=== PATIENT | female | born 1950 | race Caucasian/White ===

== ENCOUNTER 2019-12-09 14:04 | Outpatient (CLI) | payer MEDICARE, SELFPAY ==
[2019-12-09] MEDS: iohexol 300 mg/mL 50 mL Btl PO (15:09)
--- NOTE | 2019-12-09 15:09 | CT_ITS ---
WS: [id number] CT ABDOMEN PELVIS TECHNIQUE: Noncontrast CT of the abdomen and pelvis with coronal and sagittal reformatted images. CLINICAL INFORMATION: LEFT UPPER ABD PAIN COMPARISON: CT 08/09/2017 and 11/27/2016 DLP: 1120.[address] scans at [facility] use at least one of these dose optimization techniques: automat ed exposure control; mA and/or kV adjustment per patient size (includes targeted exams where dose is matched to clinical indication); or iterative reconstruction. FINDINGS: Prior hysterectomy. Noncontrast liver is normal. Normal gallbladder. Noncontrast spleen is normal. Sm all esophageal hiatal hernia with nodular soft tissue thickening in the distal esophagus. This appear s progressed since 2018. Recommend further evaluation with endoscopy.. Lung bases are well aerated. A drenal glands are normal. No hydronephrosis. Aortic calcification. Normal caliber abdominal aorta. No evidence of small or large bowel obstruction. Normal caliber abdominal aorta. Mild aortic calcific ation. No free fluid in the pelvis. No periaortic or retroperitoneal lymphadenopathy. No inguinal lym phadenopathy. Normal lumbar spine. Small fat-containing supraumbilical hernia. Small fat-containing umbilical hernia. CT/CT abdomen pelvis wo con [id number] IMPRESSION: 1. Small esophageal hiatal hernia with mild nodular tissue thickening in the d istal esophagus appears progressed since 2018. This can be further evaluated wi endoscopy. 2. Small supraumbilical fat-containing hernia is unchanged. 3. No abdominal or pelvic lymphadenopathy. 4. Normal caliber abdominal aorta. 5. No other significant interval changes.
== END 2019-12-09 14:05 | disposition home or self-care (01) ==
PROVIDERS: Family Provider Family Medicine; Visit Provider Family Medicine
DX: R10.12 Left upper quadrant pain (principal); K44.9 Diaphragmatic hernia without obstruction or gangrene
CPT/HCPCS: 74176

== ENCOUNTER 2021-02-01 08:08 | Outpatient (CLI) | payer MEDICARE, SELFPAY ==
--- NOTE | 2021-02-01 08:21 | USCV_ITS ---
Shaista Goodwin Age: 70 Gender: F : 1950 Exam Date: 02/01/2021 08:04 Ordering Phys: Jose Dutton MD Technologist: Maria E Rowley Exam Location: [facility] [place] Indication: INTERMITTENT CLAUDICATION RIGHT LEFT Brachial 153.00 mmHg Brachial 169.00 mmHg Pressure (mmHg) Waveform Pressure (mmHg) Waveform 159.00 High Thigh 166.00 159.00 WATCH MECHANIC 166.00 166.00 DPA 171.00 0.98 Ankle/Brachial Index 1.01 122.00 Pre-Exercise Toe Pressure 112.00 0.72 Pre-Exercise Toe/Brachial Index 0.66 FINDINGS Normal resting MAREK and TBI on the right side. Normal resting MAREK with a slightly diminished resting TBI on the left side CONCLUSIONS Features suggestive of mild peripheral artery disease on the left side, involving the distal vessels No significant arterial obstruction on the right side Dr Alok Evans MD [facility] (Electronically Signed) Final Date: 01 February 2021 09:59 S
== END 2021-02-01 08:09 | disposition home or self-care (01) ==
PROVIDERS: PCP Family Medicine; Visit Provider Family Medicine
DX: I73.9 Peripheral vascular disease, unspecified (principal)
CPT/HCPCS: 93922

== ENCOUNTER 2021-02-11 10:46 | Outpatient (CLI) | payer MEDICARE, SELFPAY ==
--- NOTE | 2021-02-11 | CT_ITS ---
WS: [id number] Exam: CT angio abd aorta runof [id number] Date/Time of Exam: 02/11/2021 11:27 AM Reason For Exam: CLAUDICATION DLP: 1309.[address] scans at [facility] use at least one of these dose optimization techniques: automat ed exposure control; mA and/or kV adjustment per patient size (includes targeted exams where dose is matched to clinical indication); or iterative reconstruction. CTA of the abdominal aorta and lower extremity arteries is performed in the axial plane with sagittal and coronal reformatted images. Intravenous contrast was administered. The abdominal aorta is normal in caliber. No aneurysm or dissection. The celiac, SMA and NEPTALI are merrill nt. The bilateral renal arteries are patent. The common iliac arteries are patent. The internal and e xternal iliac arteries are patent. The bilateral common femoral, superficial femoral and popliteal ar teries were also patent. The bilateral trifurcations at the knee are patent. There is diffuse narrowi ng of the left peroneal and posterior tibial artery on the left just above the level of the ankles. T he anterior and posterior tibial and peroneal arteries on the right are relatively patent to just abo ve the ankle. There was no indication of the artery aneurysm or dissection. Lower lung zones were clear. Prominent hiatal hernia. The liver, gallbladder, spleen, pancreas and re maining stomach appear normal. Unremarkable kidneys and adrenal glands. No free air or lymphadenopath y in the abdomen or pelvis. No significant large or small bowel abnormality demonstrated. Surgical an astomosis identified at the rectosigmoid junction. No mass or adenopathy in the pelvis. Intact urinar y bladder. No destructive bone lesions. CT/CT angio abd aorta runof [id number] IMPRESSION: 1. The abdominal aorta and all major branches were patent. No aneurysm or disse ction seen. 2. The major arteries in the pelvis were bilaterally patent. 3. The bilateral common femoral, superficial femoral and popliteal arteries wer e patent. The arterial trifurcations at the knees were patent. 4. Moderate small vessel segmental stenoses involving the left peroneal and pos terior tibial arteries above the level of the ankle noted. 5. The anterior and posterior tibial and peroneal arteries on the right appear to be relatively patent above the level of the ankle.
[2021-02-11 12:00] LABS: Blood Urea Nitrogen 10 mg/dL (8-23); Glomerular Filtration Rate 122.3 mL/min (90-130)
[2021-02-11] MEDS: iohexol 350 mg/mL 100 mL Btl IV (12:17)
== END 2021-02-11 10:47 | disposition home or self-care (01) ==
PROVIDERS: PCP Family Medicine; Visit Provider Family Medicine
DX: I73.9 Peripheral vascular disease, unspecified (principal); I70.8 Atherosclerosis of other arteries
CPT/HCPCS: 75635; 82565; 84520; Q9967

== ENCOUNTER → 2022-04-04 10:47 | Outpatient (BNVA) | payer MEDICARE, SELFPAY | PROVIDERS: PCP Family Medicine; Visit Provider Family Medicine | DX: E11.51 Type 2 diabetes mellitus with diabetic peripheral angiopathy without gangrene (principal); Z13.220 Encounter for screening for lipoid disorders; Z51.81 Encounter for therapeutic drug level monitoring; E55.9 Vitamin D deficiency, unspecified | CPT/HCPCS: 80053; 80061; 82306; 83036; 85025 ==

== ENCOUNTER 2022-04-13 13:06 | Outpatient (CLI) | payer MEDICARE, SELFPAY ==
--- NOTE | 2022-04-13 13:21 | MM_ITS ---
WS: [id number] Exam: [place] [id number] Date/Time of Exam: 04/13/2022 1:31 PM Reason For Exam: Screening mammogram VIEWS: MLO and CC views both breasts. 3D digital tomosynthesis is also included in this exam. Comparison made with prior exam of 12/09/2009, 12/27/2016,. Findings: There was no sign of mass, architectural distortion or suspicious calcification in either breast. Fa tty MM/[id number] Impression: BI-RADS: 1-Negative FOLLOW-UP: 1 Year Follow-up This mammogram was also analyzed by the Computer Aided Detection System R2 Imag e Robotic Welding Operator.
== END 2022-04-13 13:07 | disposition home or self-care (01) ==
LOC: RAD 13:08
PROVIDERS: PCP Family Medicine; Visit Provider Family Medicine
DX: Z12.31 Encounter for screening mammogram for malignant neoplasm of breast (principal)
CPT/HCPCS: 77067

== ENCOUNTER → 2023-03-28 13:09 | Outpatient (BNVA) | payer MEDICARE, SELFPAY | PROVIDERS: PCP Family Medicine; Visit Provider Family Medicine | DX: Z51.81 Encounter for therapeutic drug level monitoring (principal); E78.5 Hyperlipidemia, unspecified; E11.9 Type 2 diabetes mellitus without complications; R06.00 Dyspnea, unspecified; Z85.038 Personal history of other malignant neoplasm of large intestine; Z13.220 Encounter for screening for lipoid disorders | CPT/HCPCS: 80053; 80061; 83036; 85025 ==

== ENCOUNTER 2023-04-16 11:24 | Outpatient (CLI) | payer MEDICARE, SELFPAY ==
--- NOTE | 2023-04-16 12:03 | MM_ITS ---
WS: [id number] BILATERAL 3D TOMOSYNTHESIS DIGITAL SCREENING MAMMOGRAPHY WITH CAD CLINICAL INFORMATION: Screening mammogram HISTORY: Screening mammogram. No current complaints. COMPARISON: None. TECHNIQUE: Bilateral CC and MLO views. FINDINGS: Scattered fibroglandular densities bilaterally. No suspicious focal mass, asymmetry, calcifications, or architectural distortion. No evidence of malignancy. IMPRESSION: MM/[place] [id number] BI-RADS: 1-Negative FOLLOW UP: 1 Year Follow-up Recommend return to annual screening mammography.
== END 2023-04-16 11:25 | disposition home or self-care (01) ==
LOC: RAD 11:27
PROVIDERS: PCP Family Medicine; Visit Provider Family Medicine
DX: Z12.31 Encounter for screening mammogram for malignant neoplasm of breast (principal)
CPT/HCPCS: 77063; 77067

== ENCOUNTER 2023-04-30 13:23 | Outpatient (CLI) | payer MEDICARE, SELFPAY ==
--- NOTE | 2023-04-30 13:29 | CT_ITS ---
WS: [id number] LDCT LUNG CANCER SCREENING TECHNIQUE: Noncontrast CT of the chest with coronal and sagittal reformatted images. CLINICAL INFORMATION: HX OF TOBACCO USE COMPARISON: None. DLP: 76.60 mGy.cm DIvol: Mean CTDIvol: 1.70 (mGy) All CT scans at [facility] use at least one of these dose optimization techniques: automat ed exposure control; mA and/or kV adjustment per patient size (includes targeted exams where dose is matched to clinical indication); or iterative reconstruction. FINDINGS: Chronic emphysematous changes. Noncalcified nodule RIGHT upper lobe measuring 5 mm. 4 mm RI GHT middle lobe nodule. 5 mm nodule RIGHT lower lobe laterally. Tiny nodule RIGHT lower lobe measurin g 3 mm. Aortic calcification. Coronary calcification. No mediastinal or hilar lymphadenopathy. No axillary ly mphadenopathy. Adrenal glands are normal. Small esophageal hiatal hernia. No axillary lymphadenopathy . Adrenal glands are normal. IMPRESSION: CT/CT lung screening [id number] LUNG-RADS: 2-Benign Appearance or Behavior FOLLOW UP: 12 Month: Continue annual screening with LDCT
== END 2023-04-30 13:24 | disposition home or self-care (01) ==
LOC: RAD 13:24
PROVIDERS: PCP Family Medicine; Visit Provider Family Medicine
DX: Z12.2 Encounter for screening for malignant neoplasm of respiratory organs (principal); Z87.891 Personal history of nicotine dependence
CPT/HCPCS: 71271

== ENCOUNTER 2024-04-28 07:27 | Outpatient (CLI) | payer MEDICARE, SELFPAY ==
--- NOTE | 2024-04-28 07:38 | CT_ITS ---
WS: [id number] CT ABDOMEN AND PELVIS WITH CONTRAST HISTORY: EPIGASTRIC PAIN, history of colon cancer with resection. TECHNIQUE: Imaging performed of the abdomen and pelvis with IV contrast. Single phase imaging of the abdomen. Coronal and sagittal reformats are submitted. All CT scans at [facility] use at [address] one of these dose optimization techniques: automated exposure control; mA and/or kV adjustment per patient size (includes targeted exams where dose is matched to clinical indication); or iterative re construction. IV CONTRAST: Omnipaque 350; 100 mL IV. Oral contrast: Yes. DLP: 517.73 mGy.cm COMPARISON: 12/09/2019 Lower thorax: Lung bases are clear. Heart is normal size. Small hiatal hernia. Reidentified is a nodu lar, slightly lobulated mass measuring 1.9 x 2.0 cm projecting into the stomach at the GE junction. O n the coronal reformats this is slightly tubular in appearance and may be thickened gastric folds but neoplasm needs to be excluded. Liver/biliary system: Hepatic steatosis. No bile duct dilatation. Normal portal vein. Gallbladder: Normal. No gallstones or wall thickening. No pericholecystic fluid. Pancreas: Normal size pancreas and pancreatic duct. No adjacent inflammation. Spleen: Normal size spleen. No mass or infarct. Adrenal glands: Normal. Right kidney: Normal. Left kidney: Normal. Aorta: Mild atherosclerosis with no aneurysm. Mild narrowing of the celiac axis. Progression of narro wing since 02/11/2021. Plaque at the origin of the SMA. Lymphadenopathy: None. Free fluid: None. GI tract: No small bowel obstruction. There is asymmetric wall thickening involving the ascending col on. Wall measures up to 1.8 cm. Thickening is predominantly along the lateral cecal and ascending col on. Additional mild thickening of soft tissues at the rectum is slightly asymmetric to the LEFT. Rect um is a difficult area for CT to evaluate accurately. No significant diverticular disease. Abdominal wall: Ventral abdominal wall hernias containing fat. These are supraumbilical abdominal wal l hernias. Pelvis: No free fluid or adenopathy within the pelvis. Prior hysterectomy. Bones: Unremarkable. CT/CT abdomen pelvis w con* [id number] IMPRESSION: 1. Lobulated soft tissue mass at the GE junction extending into stomach measur es 1.9 x 2.0 cm. Recommend further evaluation to exclude malignancy. Upper endo scopy recommended. 2. No metastatic disease to the liver or the adrenal glands. 3. Atherosclerosis which has progressed since the prior examinations. Mild estela nosis involving the celiac axis and SMA. 4. Asymmetric wall thickening involving the cecum and ascending colon needs to be further evaluated to exclude malignancy. Colonoscopy recommended. 5. Additional asymmetric soft tissue along the lateral rectum. Colonoscopy rec ommended. 6. No ascites or adenopathy.
[2024-04-28 09:01] LABS: Blood Urea Nitrogen 10 mg/dL (8-23)
[2024-04-28] MEDS: iohexol 350 mg/mL 500 mL Btl (per mL) PO (09:19)
[2024-04-28] MEDS: iohexol 350 mg/mL 500 mL Btl (per mL) IV (09:19)
== END 2024-04-28 07:28 | disposition home or self-care (01) ==
LOC: RAD 07:28
PROVIDERS: Radiology Neuroradiology; PCP Family Medicine; Visit Provider Family Medicine
DX: R19.00 Intra-abdominal and pelvic swelling, mass and lump, unspecified site (principal); K56.690 Other partial intestinal obstruction; K42.9 Umbilical hernia without obstruction or gangrene
CPT/HCPCS: 74177; 82565; 84520

== ENCOUNTER 2024-07-22 10:02 | Emergency (ER) | payer MEDICARE, SELFPAY ==
[2024-07-22] VITALS (7 sets, daily range): BP systolic 160–191; BP diastolic 84–104; PULSE 87–108; RESP 16; TEMP 36.5; O2SAT 92–94; BMI 28.3
--- NOTE | 2024-07-22 10:41 | ED_ITS ---
HPI - Abdominal Pain 2 General: Chief Complaint: Abdominal Pain Stated Complaint: abd pain Time Seen by Provider: 07/22/24 10:41 History of Present Illness: 74-year-old female presents emergency co mplaining abdominal pain. She has muscle spasms cramping in her abdomen. She has used laxatives at time and able to get a normal bowel movement she has not had any vomiting. She had increasing abdominal discomfort took a bottle of mag citrate and had a large bowel movement but still has a cramping. She denies any medic easy melena hematemesis or coffee-ground emesis. Reviewing her chart in August 2023 she had a colonoscopy she had some polyps removed I do not have the pathology on that it was done at an outside facility. In April [address] done her liver was normal but she had changes from her previous colon resection and had questions of a right sided colon mass. She was followed with her primary care doctor regarding this referred back to the surgeon who had done the original colonoscopy. She has not had any biopsies or further evaluation of the May 04, 2024 CT. She has a known history of previous colon cancer for which she underwent colon resection Associated Symptoms: Reports constipation, GI cramping and nausea; Denies chills, dysuria and fever(s) Related Data Previous Rx's Medication Instructions Recorded metoprolol succinate 50 mg 50 mg PO DAILY #90 tabs 03/13/23 tablet,extended release 24 hr budesonide-formoterol HFA 80 2 puff inhalation BID #10.2 grams 03/28/23 mcg-4.5 mcg/actuation aerosol inhaler (Symbicort) desvenlafaxine 100 mg 100 mg PO DAILY #90 tabs 09/05/23 tablet,extended release 24 hr hydrocodone 5 mg-acetaminophen 325 1 tab PO Q6H PRN pain #25 tabs 07/22/24 mg tablet polyethylene glycol 3350 17 8.5 g PO BID #850 grams 07/22/24 gram/dose oral powder (Miralax) promethazine 25 mg tablet 25 mg PO Q6H PRN nausea and 07/22/24 vomiting #20 tabs Allergies Allergy/AdvReac Type Severity Reaction Status Date / Time Penicillins Allergy Severe ALGY-Hives Verified 07/22/24 10:19 Review of Systems 2 Const: Denies: fever(s) or chills Card: Denies: chest pain Resp: Denies: dyspnea GI: Reports: abdominal pain, nausea, constipation and GI cramping : Denies: dysuria, urinary frequency or urinary urgency Musc: Denies: neck pain or back pain Skin/Breast: Denies: rash PFSH ED 2 PFSH: Medical History Bladder polyps History of cystoscopy Prediabetes Surgical History H/O left wrist surgery History of partial colectomy Hx of hysterectomy Family History Brother Cancer of lung cancer Brother Homicide from homicide Sister Cancer of lung cancer Mother Cancer of lung cancer Father MVA (motor vehicle accident) when patient was 6 in an MVA Social History Smoking and tobacco/nicotine status: former use of tobacco/nicotine Alcohol intake: never Substance/Drug Use: former Date of last use: 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 - Wants to avoid future use Additional social history: Granddaughter is Ting Downey Physical Exam 2 Const: GENERAL APPEARANCE: cooperative ORIENTATION/CONSCIOUSNESS: Yes awake, Yes oriented to person, Yes oriented to place and Yes oriented to time HENMT: COMMON NORMALS: normocephalic, atraumatic and hearing grossly normal bilaterally HEAD & SCALP: normocephalic and atraumatic Resp: COMMON NORMALS: normal respiratory effort, No retractions, No use of accessory muscles and clear to auscultation bilaterally AUSCULTATION: clear to auscultation bilaterally Cardio: COMMON NORMALS: regular rate, regular rhythm and No murmurs present (Cardio) RATE: regular rate RHYTHM: regular rhythm GI: COMMON NORMALS: No hepatosplenomegaly present AUSCULTATION: Yes normoactive bowel sounds PALPATION: Yes Tenderness to palpation present (GI), No Guarding due to palpation present (GI) and Yes No hepatosplenomegaly present Extremity: COMMON NORMALS: normal to inspection, capillary refill normal, no clubbing, cyanosis or edema, no calf tenderness and no pedal edema Neuro: SENSORIUM/ORIENTATION: Yes oriented to person, Yes oriented to place and Yes oriented to time Skin: COMMON NORMALS: no rashes or lesions noted GENERAL SKIN EXAM: no rashes or lesions noted Course 2 Vital Signs: Vital signs: Vital Signs Temperature 97.7 F 07/22/24 10:13 Pulse Rate 108 H 07/22/24 15:18 Respiratory Rate 16 07/22/24 12:39 Blood Pressure 177/101 07/22/24 15:18 Pulse Oximetry 92 07/22/24 15:18 Oxygen Delivery Me thod Room Air 07/22/24 14:30 MDM - Abdominal Pain Medical Decision Making CT shows a large right sided colon mass its increased in size from April she now has metastasis to her liver which was not present in April. She also has significant lymphadenopathy. Reviewed the findings with the patient and she is now seeing Dr. Dutton I contacted Dr. Dutton he will see her at 2 PM she will see oncology later that afternoon. Given her history this most likely is colon cancer with metastasis. Patient was given pain medications as well as nausea medicines. Recommend she start on MiraLAX half a cap full twice a day. Discussed with the importance of not allowing constipation her stools need to be very loose. I did review her history and her CT findings with the on-call surgeon he did not feel that she is a candidate for emergent colon resection because of her extensive disease. Unless she has actual signs of obstruction he does not recommend proceeding with a surgical procedure at this time. Medical Records I reviewed the patient's medical records. Lab Data I reviewed the patient's lab results. 07/22/24 10:56 07/22/24 10:56 Labs/Radiology: Radiology Impressions Abdomen/Pelvis CT 07/22/24 12:11 IMPRESSION: 1. Hepatic metastatic disease. Metastatic lymphadenopathy within the abdomen or pelvis. 2. Colon mass, malignancy within the proximal right colon. 3. Moderate to severe hepatic steatosis. Nonspecific heterogeneous and irregular appearance of the liver. Recommend correlation with liver function tests. 4. Small sized hiatal hernia. 5. Possible mild constipation. 6. Small volume free fluid within right abdomen and pelvis. 7. Chronic findings. 8. Small volume free fluid within the right abdomen pelvis. Laboratory Results WBC 8.21 10^3/uL (3.29-11.43) 07/22/24 10:56 RBC 5.40 10^6/uL (3.85-5.65) 07/22/24 10:56 Hgb 15.40 g/dL (11.27-16.99) 07/22/24 10:56 Hct 48.1 % (36-47) H 07/22/24 10:56 MCV 89.1 fl (85-98) 07/22/24 10:56 MCH 28.5 pg (27-33) 07/22/24 10:56 MCHC 32.0 g/dL (30-55) 07/22/24 10:56 RDW 13.2 % (12.1-15.1) 07/22/24 10:56 Plt Count 255 10^3/cmm (157-399) 07/22/24 10:56 MPV 9.7 fL (7.4-10.4) 07/22/24 10:56 Neut % (Auto) 79.2 % 07/22/24 10:56 Lymph % (Auto) 11.8 % 07/22/24 10:56 [place] % (Auto) 6.7 % 07/22/24 10:56 Eos % (Auto) 1.0 % 07/22/24 10:56 Baso % (Auto) 0.6 % 07/22/24 10:56 Neut # (Auto) 6.50 10^3/uL (1.8-7.7) 07/22/24 10:56 Lymph # (Auto) 1.0 10^3/uL (0.8-4.8) 07/22/24 10:56 [place] # (Auto) 0.6 10^3/uL (0.2-0.9) 07/22/24 10:56 Eos # (Auto) 0.1 10^3/uL (0.0-0.8) 07/22/24 10:56 Baso # (Auto) 0.1 10^3/uL (0.0-0.1) 07/22/24 10:56 Nucleated RBC % (auto) 0 % 07/22/24 10:56 Nucleated RBCs # 0.0 /100WBC 07/22/24 10:56 Sodium 132 mmol/L (136-145) L 07/22/24 10:56 Potassium 4.9 mmol/L (3.5-5.1) 07/22/24 10:56 Chloride 94 mmol/L (98-107) L 07/22/24 10:56 Carbon Dioxide 28 mmol/L (22-29) 07/22/24 10:56 Anion Gap 14.9 (5-19) 07/22/24 10:56 BUN 15 mg/dL (8-23) 07/22/24 10:56 Creatinine 0.6 mg/dL (0.5-0.9) 07/22/24 10:56 GFR Calculation Not Reportable 07/22/24 10:56 Glucose 279 mg/dL (65-115) H 07/22/24 10:56 Calculated Osmolality 285 mOsm/kg (285-295) 07/22/24 10:56 Calcium 10.0 mg/dL (8.5-10.5) 07/22/24 10:56 Total Bilirubin 0.5 mg/dL (0.15-1.2) 07/22/24 10:56 AST 43 U/L (0-32) H 07/22/24 10:56 ALT 27 U/L (0-33) 07/22/24 10:56 Alkaline Phosphatase 199 U/L (35-105) H 07/22/24 10:56 Total Protein 7.4 g/dL (6.6-8.7) 07/22/24 10:56 Albumin 4.2 g/dL (3.5-5.2) 07/22/24 10:56 Globulin 3.2 g/dL (1.3-4.6) 07/22/24 10:56 Lipase 16 U/L (13-60) 07/22/24 10:56 Urine Color Dark yellow (Yellow) A 07/22/24 10:34 Urine Appearance Cloudy (CLEAR) A 07/22/24 10:34 Urine pH 5.0 (5-7) 07/22/24 10:34 Ur Specific [place] 1.036 (1.005-1.030) H 07/22/24 10:34 Urine Protein 1+ (Negative) A 07/22/24 10:34 Urine Glucose (UA) 2+ (Normal) H 07/22/24 10:34 Urine Ketones Trace (Negative) 07/22/24 10:34 Urine Blood Negative (Negative) 07/22/24 10:34 Urine Nitrate Negative (Negative) 07/22/24 10:34 Urine Bilirubin 2+ (Negative) H 07/22/24 10:34 Urine Urobilinogen 1.0 mg/dL (Negative) 07/22/24 10:34 Ur Leukocyte Esterase Trace (Negative) A 07/22/24 10:34 Urine RBC 0-4 /hpf (0-2) H 07/22/24 10:34 Urine WBC 5-10 /hpf (0-5) H 07/22/24 10:34 Ur Squamous Epith Cells 5-10 /hpf (0-5) H 07/22/24 10:34 Amorphous Sediment Not Reportable 07/22/24 10:34 Urine Bacteria 1+ /hpf (NONE) H 07/22/24 10:34 Hyaline Casts 15-25 /lpf H 07/22/24 10:34 Urine Mucus 1+ /hpf 07/22/24 10:34 All radiology interpretation(s) finalized by discharge Discharge Plan Discharge Patient Disposition: Home Clinical Impression: Colon cancer metastasized to liver Condition: Stable Prescriptions: New hydrocodone-acetaminophen 5-325 mg tablet 1 tab PO Q6H PRN (Reason: pain) Qty: 25 0RF promethazine 25 mg tablet 25 mg PO Q6H PRN (Reason: nausea and vomiting) Qty: 20 0RF polyethylene glycol 3350 [Miralax] 17 gram/dose powder 8.5 g PO BID Qty: 850 0RF No Action budesonide-formoterol [Symbicort] 80-4.5 mcg/actuation HFA aerosol inhaler 2 puff inhalation BID Qty: 10.2 6RF metoprolol succinate 50 mg tablet extended release 24 hr 50 mg PO DAILY Qty: 90 3RF desvenlafaxine 100 mg tablet extended release 24 hr 100 mg PO DAILY Qty: 90 3RF Discharge Orders: Discharge ED (Routine); Ordered 07/22/24 Ordered By: Barry Farrar Referrals: Jose Dutton MD [Primary Care Provider] - Discharge Diet: Usual diet Discharge Activity: Resume usual activity Patient Instructions: Opioid Safety, Pain Management Activity Restrictions/Additional Instructions: Thank you for choosing [facility] for your healthcare needs today. It is very important that you follow up as instructed or that you return to the Emergency Department should you have concerns or if your condition changes or worsens in any way. You were seen in the emergency room for abdominal pain. Your records were reviewed there was a mass noted on a CT done in April 2024 that masses increase in size on the right colon and there appears to be metastasis to the liver on today's scan. You have an appointment with the oncologist on July 24 at 3:30 PM. You have an appointment Dr. Dutton on July 24 at 2 PM. We have given you pain and nausea medications to use. Additionally recommend that you start MiraLAX half of a capful twice a day. It is very important to prevent constipation. Dr. Dutton can continue to work with a regimen for you to prevent constipation with this. Oncology will review your records and make recommendations for treatment options. Coding Level of Care Code ED Featheredge Machine Operator for Magda Christina
[2024-07-22 11:09] LABS: Bilirubin Urine 2+ (Negative); Blood Urine Negative (Negative); Glucose Urine UA 2+ (Normal); Ketones Urine Trace (Negative); Leukocyte Esterase Urine Trace (Negative); Nitrate Urine Negative (Negative); Protein Urine 1+ (Negative); Urine Appearance Cloudy (CLEAR); Urine Color Dark Yellow (Yellow)
[2024-07-22 11:16] LABS: Basophils # 0.1 10^3/uL (0.0-0.1); Basophils % 0.6 %; Eosinophils # 0.1 10^3/uL (0.0-0.8); Hematocrit 48.1 % (36-47); Lymphocytes % 11.8 %; Mean Corpuscular Hemoglobin 28.5 pg (27-33); Mean Corpuscular Volume 89.1 fl (85-98); Mean Platelet Volume 9.7 fL (7.4-10.4); Monocytes # 0.6 10^3/uL (0.2-0.9); Monocytes % 6.7 %; Neutrophils % 79.2 %; Nucleated Red Blood Cells % 0 %; Platelet Count 255 10^3/cmm (157-399); Red Cell Distribution Width 13.2 % (12.1-15.1); White Blood Count 8.21 10^3/uL (3.29-11.43)
[2024-07-22 11:27] LABS: Specific Gravity, Urine 1.036 (1.005-1.030); UA Manual Slide Review YES; UA Slide Review UA Slide Review Perf
[2024-07-22 11:34] LABS: Add Urine Microscopic? YES; Bacteria Urine 1+ /hpf; Hyaline Casts Urine 15-25 /lpf; Mucus Urine 1+ /hpf; RBC Urine 0-4 /hpf (0-2)
[2024-07-22 11:35] LABS: Alanine Aminotransferase 27 U/L (0-33); Albumin Level 4.2 g/dL (3.5-5.2); Alkaline Phosphatase 199 U/L (35-105); Anion Gap 14.9 (5-19); Aspartate Amino Transferase 43 U/L (0-32); Blood Urea Nitrogen 15 mg/dL (8-23); Carbon Dioxide 28 mmol/L (22-29); Chloride 94 mmol/L (98-107); Creatinine Clr Calc Pharmacy 55.2648; Globulin 3.2 g/dL (1.3-4.6); Glucose 279 mg/dL (65-115); Lipase 16 U/L (13-60); Osmolality Calculated 285 mOsm/kg (285-295); Potassium 4.9 mmol/L (3.5-5.1); Sodium 132 mmol/L (136-145); Total Bilirubin 0.5 mg/dL (0.15-1.2); Total Protein 7.4 g/dL (6.6-8.7)
[2024-07-22 11:35] LABS: Add Urine Culture? No
--- NOTE | 2024-07-22 12:11 | CTR_ITS ---
PROCEDURE INFORMATION: Exam: CT Abdomen And Pelvis With Contrast Exam date and time: 07/22/2024 12:47 PM Age: 74 years old Clinical indication: Abdominal pain; Localized; Left upper quadrant (luq); Prior surgery; Surgery date: 6+ months; Surgery type: Hyst, colon resection; Patient HX: HX of colon and bladder cancer; Additional info: Abd pain TECHNIQUE: Imaging protocol: Computed tomography of the abdomen and pelvis with contrast. Radiation optimization: All CT scans at this facility use at least one of these dose optimization techniques: automated exposure control; mA and/or kV adjustment per patient size (includes targeted exams where dose is matched to clinical indication); or iterative reconstruction. Contrast material: OMNI 350; Contrast volume: 100 ml; Contrast route: INTRAVENOUS (IV); COMPARISON: CT abdomen pelvis w con* [id number] 04/28/2024 8:48 AM RADIATION DOSE METRICS: Total DLP (mGy-cm): 600.68 FINDINGS: Lungs: Bilateral lower lung atelectasis or scarring is demonstrated. Heart: Mitral valve calcification is demonstrated. Diaphragm: Small hiatal hernia is demonstrated within the lower mediastinum. Liver: Multiple incidental mass lesions are demonstrated within the liver, compatible with metastatic malignant disease. Multiple liver metastases within both hepatic lobes. The liver masses measure up to 5 cm greatest diameter. There is central necrosis with peripheral rim enhancement. These demonstrate target appearance compatible with metastatic adenocarcinoma. Liver demonstrates diffuse moderate to severe hypodensity. Liver appears heterogeneous with irregular border. Possible hepatic parenchymal disease. Gallbladder and biliary ducts: Unremarkable. No calcified stones. No ductal dilation. Pancreas: Unremarkable. Spleen: Unremarkable. No splenomegaly. Adrenal glands: Normal. No mass. Kidneys and ureters: Unremarkable. No hydronephrosis or calculi. Stomach and bowel: Irregular mass, malignancy identified within the proximal right colon. This mass measures up to 5.6 cm craniocaudal diameter on coronal image 34. Irregular mass measures up to 2.5 cm thickness and 5.3 cm with axial imaging. There is adjacent edema, fluid within the right lower abdomen and right upper pelvis region within the proximal right colon. Possible mild increased volume of colonic fecal material identified throughout the colon. Partial distal colectomy with distal colorectal anastomosis. Anastomosis appears grossly unremarkable. No visualized evidence for bowel obstruction or ileus. Appendix: No evidence of appendicitis. Intraperitoneal space: See Stomach and bowel finding. Mild volume of intraperitoneal fluid identified in the right abdomen and pelvis. No significant intraperitoneal well-defined fluid collection or air identified. Vasculature: Moderate atherosclerotic calcification demonstrated within the aorta. Moderate diffuse atherosclerotic arterial vascular wall calcifications are demonstrated. Lymph nodes: Enlarged lymphadenopathy in the central to right abdominal mesentery. Largest lymph node in the superior midline abdominal mesentery measures 2.3 cm on axial image 17. Enlarged portal caval lymph nodes measure up to 17 mm short axis diameter on axial image 24 and 2.7 cm greatest length. Enlarged periaortic abdominal retroperitoneal lymphadenopathy measures up to 1.9 cm greatest diameter. Enlarged mesenteric lymphadenopathy in the right pelvis measures up to 2.8 cm on axial image 50. Retroperitoneal lymph nodes at the level of the diaphragmatic hiatus also appear enlarged measuring up to 12 mm. Urinary bladder: Urinary bladder appears small in size, limiting further assessment. Reproductive: Unremarkable as visualized. Bones/joints: Diffusely decreased bone density. Mild to moderate generalized bony degenerative changes. Bony structures appear otherwise unremarkable. Soft tissues: See Liver finding. CT/CT abdomen pelvis w con* [id number] IMPRESSION: 1. Hepatic metastatic disease. Metastatic lymphadenopathy within the abdomen or pelvis. 2. Colon mass, malignancy within the proximal right colon. 3. Moderate to severe hepatic steatosis. Nonspecific heterogeneous and irregular appearance of the liver. Recommend correlation with liver function tests. 4. Small sized hiatal hernia. 5. Possible mild constipation. 6. Small volume free fluid within right abdomen and pelvis. 7. Chronic findings. 8. Small volume free fluid within the right abdomen pelvis.
[2024-07-22] MEDS: ondansetron 2 mg/ML SDV 2 mL 4 MG IVP (12:37)
[2024-07-22] MEDS: ketorolac 30 mg/mL INJ 15 MG IVP (12:38)
[2024-07-22] MEDS: iohexol 350 mg/mL 500 mL Btl (per mL) IV (12:50)
== END 2024-07-22 15:20 | disposition home or self-care (01) ==
PROVIDERS: Physician Assistant; Emergency Provider Family Medicine; PCP Family Medicine
DX: C18.9 Malignant neoplasm of colon, unspecified (principal); C78.7 Secondary malignant neoplasm of liver and intrahepatic bile duct; Z87.891 Personal history of nicotine dependence
CPT/HCPCS: 36415; 74177; 80053; 81001; 83690; 85025; 96374; 96375; 99285; J1885; J2405

== ENCOUNTER 2024-07-24 17:00 | Emergency (ER) | payer MEDICARE, SELFPAY ==
[2024-07-24 17:09] VITALS: BP 151/75; PULSE 111; RESP 17; TEMP 37; O2SAT 92; BMI 29.5
--- NOTE | 2024-07-24 17:16 | W.ED.ABDPA2 ---
HPI - Abdominal Pain General: Chief Complaint: Abdominal Pain Stated Complaint: no bowel movement in 4 days Time Seen by Provider: 07/24/24 17:15 Source: patient and family Mode of arrival: wheelchair Limitations: no limitations History of Present Illness: Patient is a 74-year-old female recently found to have stage IV metastatic colon cancer. She was seen here in our emergency department 2 days ago with complaints of abdominal pain. She had CT imaging performed which showed: CT/CT abdomen pelvis w con* [id number] IMPRESSION: 1. Hepatic metastatic disease. Metastatic lymphadenopathy within the abdomen or pelvis. 2. Colon mass, malignancy within the proximal right colon. 3. Moderate to severe hepatic steatosis. Nonspecific heterogeneous and irregular appearance of the liver. Recommend correlation with liver function tests. 4. Small sized hiatal hernia. 5. Possible mild constipation. 6. Small volume free fluid within right abdomen and pelvis. 7. Chronic findings. 8. Small volume free fluid within the right abdomen pelvis. She followed up with Dr. Dutton and also saw our oncology department today. She had had complaints of no bowel movement or flatulence for 4 days. Oncology sent her here for obstipation/constipation with obstruction rule out. He felt if obstruction was present, patient most likely would require diverting colostomy. Patient states she is holding down fluids and water. She has ate a small amount without vomiting. She does have nausea. She continues to have abdominal pain. She has a known previous history of colon cancer requiring surgery. She states she underwent surgery at [facility] in 2016 stating they took a part of my colon out and rerouted it . MD elicited complaint: abdominal pain Pertinent past history: other (recently found to have stage IV colon cancer) Onset (ago): day(s) Pain Consistency: constant Location: Diffuse Severity: severe Radiation: none Migration to: no migration Exacerbating factors: nothing Relieving factors: nothing Associated Symptoms: Reports constipation and nausea; Denies dysuria, fever(s) and vomiting Related Data Previous Rx's Medication Instructions Recorded metoprolol succinate 50 mg 50 mg PO DAILY #90 tabs 03/13/23 tablet,extended release 24 hr budesonide-formoterol HFA 80 2 puff inhalation BID #10.2 grams 03/28/23 mcg-4.5 mcg/actuation aerosol inhaler (Symbicort) desvenlafaxine 100 mg 100 mg PO DAILY #90 tabs 09/05/23 tablet,extended release 24 hr polyethylene glycol 3350 17 8.5 g PO BID #850 grams 07/22/24 gram/dose oral powder (Miralax) promethazine 25 mg tablet 25 mg PO Q6H PRN nausea and 07/22/24 vomiting #20 tabs ciprofloxacin HCl 500 mg tablet 500 mg PO Q12H #14 tabs 07/24/24 (Cipro) hydrocodone 7.5 mg-acetaminophen 1 tab PO Q6H PRN pain 15 days #60 07/24/24 325 mg tablet tabs lactulose 10 gram/15 mL (15 mL) 30 g (45 mL) PO QID PRN 07/24/24 oral solution constipation #600 mL Allergies Allergy/AdvReac Type Severity Reaction Status Date / Time Penicillins Allergy Severe ALGY-Hives Verified 07/24/24 15:51 Review of Systems Const: Denies: fever(s) Card: Denies: chest pain Resp: Denies: dyspnea GI: Reports: abdominal pain, nausea and constipation; Denies: vomiting or rectal pain : Denies: flank pain or dysuria Musc: Denies: neck pain, back pain, extremity pain, joint pain or joint swelling Skin/Breast: Denies: rash Neuro: Denies: headache(s), numbness in extremities, weakness in extremities, sensory changes or dizziness PFSH ED PFSH: Medical History History of colon cancer s/p removal of 1 foot of sigmoid colon ~2014 Bladder polyps History of cystoscopy Prediabetes Surgical History H/O left wrist surgery History of partial colectomy Hx of hysterectomy Family History Brother Cancer of lung cancer Brother Homicide from homicide Sister Cancer of lung cancer Mother Cancer of lung cancer Father MVA (motor vehicle accident) when patient was 6 in an MVA Social History Smoking and tobacco/nicotine status: tobacco/nicotine user, details unknown e-cigarettes Alcohol intake: never Substance/Drug Use: former Date of last use: 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 - Wants to avoid future use Additional social history: Granddaughter is Ting Downey Physical Exam Const: COMMON NORMALS: no acute distress, average body habitus, patient oriented x3, no limitations, healthy appearing, alert and well nourished Resp: COMMON NORMALS: normal respiratory effort and clear to auscultation bilaterally AUSCULTATION: clear to auscultation bilaterally Cardio: COMMON NORMALS: regular rate and regular rhythm RATE: regular rate RHYTHM: regular rhythm GI: INSPECTION: Yes normal to inspection AUSCULTATION: Yes normoactive bowel sounds (faint but present bowel sounds) PALPATION: Yes Tenderness to palpation present (GI), No Guarding due to palpation present (GI) and No Rigid due to palpation : COMMON NORMALS: Yes no CVA tenderness BLADDER/KIDNEY EXAM: Yes no CVA tenderness Back/Pelvis: COMMON NORMALS: no CVA tenderness Neuro: COMMON NORMALS: patient oriented x3 SENSORIUM/ORIENTATION: Yes alert Course Vital Signs: Vital signs: Vital Signs Temperature 98.6 F 07/24/24 17:09 Pulse Rate 98 07/24/24 18:52 Respiratory Rate 16 07/24/24 19:46 Blood Pressure 167/92 07/24/24 17:42 Pulse Oximetry 96 07/24/24 18:52 Oxygen Delivery Me thod Room Air 07/24/24 17:09 MDM - Abdominal Pain Medical Decision Making Patient is a nice 74-year-old female with recent diagnosis of stage IV metastatic colon cancer here after she was sent here from the oncology department to rule out bowel obstruction. According to their note, they thought patient would be a candidate for a divergent colostomy if she was obstructed. Dr. Hall did review patient's CT scan while here. He stated patient would be a very poor surgical candidate and would not recommend any form of surgery. He stated, IF she did end up require surgery, this would most likely need to be done at an institution such as [facility] and would involve multiple surgeries as she would be likely to continue to develop obstructions proximal to the colostomy. Luckily, patient's CT scan at this time did not show obstruction and we do not have to cross that bridge at this time. She has expressed not ever wanting a colostomy anyway. We did not discuss her treatment/prognosis/options as I will leave this up to oncology but it seems it will most likely only be palliative. Her vitals have been stable here. Blood work overall is nonactionable. Her UA is positive for acute cystitis with a cloudy appearance, 2+ leukocyte esterase, greater than 100 WBCs. She was given IV Rocephin prior to discharge and was placed on Ciprofloxacin. Offered enema/suppository here for constipation but she declines. She has a granddaughter who is a family medicine nurse practitioner and is here by her side. She will help her grandmother with cupx-rmq-[id number] medications to help move bowels. She was given a mixture of milk of magnesia, lactulose, mineral oil here prior to discharge to take when she gets home. She has pain medications given to her by Dr. Dutton she can take for pain. Recommend prompt follow-up with her oncology team. Return to ED precautions given. Medical Records I reviewed the patient's medical records. Lab Data I reviewed the patient's lab results. 07/24/24 17:24 07/24/24 18:30 Labs/Radiology: Radiology Impressions Abdomen/Pelvis CT 07/24/24 17:24 IMPRESSION: 1. Moderate fecal stasis. 2. Stable findings of primary colon malignancy involving the right colon with malignant lymphadenopathy and diffuse liver metastases. There is mild soft tissue nodularity in the right paracolic gutter concerning for peritoneal carcinomatosis. 3. No evidence of bowel obstruction. Laboratory Results WBC 7.31 10^3/uL (3.29-11.43) 07/24/24 17:24 RBC 5.08 10^6/uL (3.85-5.65) 07/24/24 17:24 Hgb 14.80 g/dL (11.27-16.99) 07/24/24 17:24 Hct 45.2 % (36-47) 07/24/24 17:24 MCV 89.0 fl (85-98) 07/24/24 17:24 MCH 29.1 pg (27-33) 07/24/24 17:24 MCHC 32.7 g/dL (30-55) 07/24/24 17:24 RDW 13.2 % (12.1-15.1) 07/24/24 17:24 Plt Count 256 10^3/cmm (157-399) 07/24/24 17:24 MPV 10.7 fL (7.4-10.4) H 07/24/24 17:24 Neut % (Auto) 77.5 % 07/24/24 17:24 Lymph % (Auto) 11.5 % 07/24/24 17:24 Gem % (Auto) 8.9 % 07/24/24 17:24 Eos % (Auto) 1.2 % 07/24/24 17:24 Baso % (Auto) 0.5 % 07/24/24 17:24 Neut # (Auto) 5.66 10^3/uL (1.8-7.7) 07/24/24 17:24 Lymph # (Auto) 0.8 10^3/uL (0.8-4.8) 07/24/24 17:24 Gem # (Auto) 0.7 10^3/uL (0.2-0.9) 07/24/24 17:24 Eos # (Auto) 0.1 10^3/uL (0.0-0.8) 07/24/24 17:24 Baso # (Auto) 0.0 10^3/uL (0.0-0.1) 07/24/24 17:24 Nucleated RBC % (auto) 0 % 07/24/24 17: Nucleated RBCs # 0.0 /100WBC 07/24/24 17:24 Sodium 132 mmol/L (136-145) L 07/24/24 18:30 Potassium 4.9 mmol/L (3.5-5.1) 07/24/24 18:30 Chloride 93 mmol/L (98-107) L 07/24/24 18:30 Carbon Dioxide 30 mmol/L (22-29) H 07/24/24 18:30 Anion Gap 13.9 (5-19) 07/24/24 18:30 BUN 18 mg/dL (8-23) 07/24/24 18:30 Creatinine 0.7 mg/dL (0.5-0.9) 07/24/24 18:30 GFR Calculation Not Reportable 07/24/24 18:30 Glucose 176 mg/dL (65-115) H 07/24/24 18:30 Calculated Osmolality 280 mOsm/kg (285-295) L 07/24/24 18:30 Lactic Acid 1.2 mmol/L (0.5-2.2) 07/24/24 17:24 Calcium 9.8 mg/dL (8.5-10.5) 07/24/24 18:30 Total Bilirubin 0.5 mg/dL (0.15-1.2) 07/24/24 18:30 AST 20 U/L (0-32) 07/24/24 18:30 ALT 21 U/L (0-33) 07/24/24 18:30 Alkaline Phosphatase 192 U/L (35-105) H 07/24/24 18:30 Total Protein 6.8 g/dL (6.6-8.7) 07/24/24 18: Albumin 3.8 g/dL (3.5-5.2) 07/24/24 18: Globulin 3.0 g/dL (1.3-4.6) 07/24/24 18:30 Urine Color Dark yellow (Yellow) A 07/24/24 17: Urine Appearance Cloudy (CLEAR) A 07/24/24 17: Urine pH 6.0 (5-7) 07/24/24 17:32 Ur Specific [place] 1.025 (1.005-1.030) 07/24/24 17: Urine Protein 1+ (Negative) A 07/24/24 17: Urine Glucose (UA) Negative (Normal) 07/24/24 17:32 Urine Ketones 1+ (Negative) H 07/24/24 17:32 Urine Blood Negative (Negative) 07/24/24 17: Urine Nitrate Negative (Negative) 07/24/24 17: Urine Bilirubin 1+ (Negative) H 07/24/24 17:32 Urine Urobilinogen 1.0 mg/dL (Negative) 07/24/24 17:32 Ur Leukocyte Esterase 2+ (Negative) A 07/24/24 17: Urine RBC 0-2 /hpf (0-2) 07/24/24 17:32 Urine WBC >100 /hpf (0-5) H 07/24/24 17:32 Ur Squamous Epith Cells 0-5 /hpf (0-5) 07/24/24 17:32 Amorphous Sediment Not Reportable 07/24/24 17:32 Urine Bacteria 1+ /hpf (NONE) H 07/24/24 17:32 Hyaline Casts 3.71 /lpf 07/24/24 17:32 All radiology interpretation(s) finalized by discharge Discharge Plan Discharge Patient Disposition: Home Clinical Impression: Colon cancer metastasized to liver Constipation Qualifiers: Constipation type: unspecified constipation type Qualified Code(s): K59.00 - Constipation, unspecified Acute cystitis Qualifiers: Hematuria presence: without hematuria Qualified Code(s): N30.00 - Acute cystitis without hematuria Condition: Stable Prescriptions: New ciprofloxacin HCl [Cipro] 500 mg tablet 500 mg PO Q12H Qty: 14 0RF No Action budesonide-formoterol [Symbicort] 80-4.5 mcg/actuation HFA aerosol inhaler 2 puff inhalation BID Qty: 10.2 6RF hydrocodone-acetaminophen 7.5-325 mg tablet 1 tab PO Q6H PRN (Reason: pain) 15 Days Qty: 60 0RF lactulose 10 gram/15 mL (15 mL) solution 30 g PO QID PRN (Reason: constipation) Qty: 600 3RF metoprolol succinate 50 mg tablet extended release 24 hr 50 mg PO DAILY Qty: 90 3RF desvenlafaxine 100 mg tablet extended release 24 hr 100 mg PO DAILY Qty: 90 3RF promethazine 25 mg tablet 25 mg PO Q6H PRN (Reason: nausea and vomiting) Qty: 20 0RF polyethylene glycol 3350 [Miralax] 17 gram/dose powder 8.5 g PO BID Qty: 850 0RF Discharge Orders: Discharge ED (Routine); Ordered 07/24/24 Ordered By: Emely Rojo Referrals: Jose Dutton MD [Primary Care Provider] - Patient Instructions: Constipation - Oncology, Constipation (DC), Urinary Tract Infection in Older Adults (ED) Activity Restrictions/Additional Instructions: As we discussed, your CT imaging did not show any obstruction at this time. You were given an oral mixture to drink when you get home. We discussed possibly needing the use of czuy-tmn-[id number] suppositories/enemas to help move stool. Your granddaughter has discussed with you other [id number] medications to try. You may use your pain medication prescribed to you by Dr. Dutton. Make sure you take these with a stool softener. I would like you to follow-up with your oncology team as soon as possible to go over the plan regarding treatment. Your urine today was positive for a urinary tract infection. I am placing you on Ciprofloxacin for this and we will culture your urine. You were given IV Rocephin prior to discharge. You need to return to the emergency department at anytime for worsening or uncontrollable abdominal pain, severe flank pain, repetitive episodes of vomiting, fevers, inability to hold down or tolerate your antibiotics, generally feeling worse or unwell, or any other concerns you may have. Coding Level of Care Code ED Child Abuse Worker for Magda Christina
--- NOTE | 2024-07-24 17:24 | CTR_ITS ---
PROCEDURE INFORMATION: Exam: CT Abdomen And Pelvis With Contrast Exam date and time: 07/24/2024 6:36 PM Age: 74 years old Clinical indication: Constipation; Additional info: Metastatic cancer; Constipation/obstipation; R/O obstruction TECHNIQUE: Imaging protocol: Computed tomography of the abdomen and pelvis with contrast. Radiation optimization: All CT scans at this facility use at least one of these dose optimization techniques: automated exposure control; mA and/or kV adjustment per patient size (includes targeted exams where dose is matched to clinical indication); or iterative reconstruction. Contrast material: OMNI 350; Contrast volume: 100 ml; Contrast route: INTRAVENOUS (IV); COMPARISON: CT abdomen pelvis w con* [id number] 07/22/2024 12:47 PM RADIATION DOSE METRICS: Total DLP (mGy-cm): 605.86 FINDINGS: Liver: Stable diffuse hypovascular liver metastases. Gallbladder and biliary ducts: Normal. No calcified stones. No ductal dilation. Pancreas: Normal. No ductal dilation. Spleen: Normal. No splenomegaly. Adrenal glands: Normal. No mass. Kidneys and ureters: Normal. No hydronephrosis. Stomach and bowel: Stable eccentric mass involving the cecum. Postsurgical changes from low colon resection with anastomosis. No signs of bowel obstruction. Mild fecal stasis. Appendix: No evidence of appendicitis. Intraperitoneal space: There is increased soft tissue stranding adjacent to the mass in the right paracolic gutter concerning for early peritoneal carcinomatosis. Vasculature: Scattered calcific plaque involves the abdominal aorta and iliac arteries. Lymph nodes: Stable enlarged lymph node within the lb hepatis measuring 2.2 cm in short axis. Enlarged regional lymph node adjacent to the cecum measuring 2 cm in short axis. Urinary bladder: Unremarkable as visualized. Reproductive: The uterus is surgically absent. Bones/joints: Unremarkable. No acute fracture. Soft tissues: Unremarkable. CT/CT abdomen pelvis w con* [id number] IMPRESSION: 1. Moderate fecal stasis. 2. Stable findings of primary colon malignancy involving the right colon with malignant lymphadenopathy and diffuse liver metastases. There is mild soft tissue nodularity in the right paracolic gutter concerning for peritoneal carcinomatosis. 3. No evidence of bowel obstruction.
[2024-07-24 17:39] VITALS: RESP 16
[2024-07-24] MEDS: HYDROmorphone 1 mg/mL INJ 1 mL 0.5 MG IVP ×2 (17:39→19:46)
[2024-07-24] MEDS: ondansetron 2 mg/ML SDV 2 mL 4 MG IVP (17:40)
[2024-07-24 17:42] VITALS: BP 167/92; PULSE 112; RESP 16; O2SAT 95
[2024-07-24 17:48] LABS: Basophils % 0.5 %; Eosinophils # 0.1 10^3/uL (0.0-0.8); Eosinophils % 1.2 %; Hematocrit 45.2 % (36-47); Lymphocytes # 0.8 10^3/uL (0.8-4.8); Lymphocytes % 11.5 %; Mean Corpuscular HGB Conc 32.7 g/dL (30-55); Mean Corpuscular Hemoglobin 29.1 pg (27-33); Mean Platelet Volume 10.7 fL (7.4-10.4); Monocytes # 0.7 10^3/uL (0.2-0.9); Monocytes % 8.9 %; Neutrophils # 5.66 10^3/uL (1.8-7.7); Neutrophils % 77.5 %; Nucleated Red Blood Cells % 0 %; Platelet Count 256 10^3/cmm (157-399); Red Blood Count 5.08 10^6/uL (3.85-5.65); Red Cell Distribution Width 13.2 % (12.1-15.1); White Blood Count 7.31 10^3/uL (3.29-11.43)
[2024-07-24 17:48] LABS: Bilirubin Urine 1+ (Negative); Blood Urine Negative (Negative); Glucose Urine UA Negative (Normal); Ketones Urine 1+ (Negative); Leukocyte Esterase Urine 2+ (Negative); Nitrate Urine Negative (Negative); Protein Urine 1+ (Negative); Specific Gravity, Urine 1.025 (1.005-1.030); Urine Appearance Cloudy (CLEAR); Urine Color Dark Yellow (Yellow)
[2024-07-24 17:53] LABS: Add Urine Microscopic? YES; Bacteria Urine 1+ /hpf; Hyaline Casts Urine 3.71 /lpf; RBC Urine 0-2 /hpf (0-2); Squamous Epithelial Cell Urine 0-5 /hpf (0-5); WBC Urine >100 /hpf (0-5)
[2024-07-24 17:58] LABS: Lactic Sepsis W/Reflex 1.2 mmol/L (0.5-2.2)
[2024-07-24 18:03] LABS: Add Urine Culture? Yes
[2024-07-24] MEDS: iohexol 350 mg/mL 500 mL Btl (per mL) IV (18:42)
[2024-07-24 18:52] VITALS: PULSE 98; RESP 16; O2SAT 96
[2024-07-24 18:58] LABS: Alanine Aminotransferase 21 U/L (0-33); Albumin Level 3.8 g/dL (3.5-5.2); Alkaline Phosphatase 192 U/L (35-105); Anion Gap 13.9 (5-19); Aspartate Amino Transferase 20 U/L (0-32); Blood Urea Nitrogen 18 mg/dL (8-23); Calcium 9.8 mg/dL (8.5-10.5); Carbon Dioxide 30 mmol/L (22-29); Chloride 93 mmol/L (98-107); Glucose 176 mg/dL (65-115); Osmolality Calculated 280 mOsm/kg (285-295); Potassium 4.9 mmol/L (3.5-5.1); Sodium 132 mmol/L (136-145); Total Bilirubin 0.5 mg/dL (0.15-1.2); Total Protein 6.8 g/dL (6.6-8.7)
[2024-07-24] MEDS: lactulose oral liq 20 gm/30 mL UDC 30 GM PO (19:21)
[2024-07-24] MEDS: cefTRIAXone 1,000 mg SDV 1000 MG IVP (19:22)
[2024-07-24] MEDS: mineral oil 30 mL UDC PO (19:22)
[2024-07-24] MEDS: magnesium hydroxide 30 mL UDC PO (19:22)
[2024-07-24 19:46] VITALS: RESP 16
[2024-07-24 20:07] VITALS: BP 151/75; PULSE 106; RESP 16; O2SAT 92
== END 2024-07-24 20:14 | disposition home or self-care (01) ==
PROVIDERS: Emergency Provider Physician Assistant; PCP Family Medicine
DX: C18.9 Malignant neoplasm of colon, unspecified (principal); C78.7 Secondary malignant neoplasm of liver and intrahepatic bile duct; K59.00 Constipation, unspecified; N30.00 Acute cystitis without hematuria; F17.290 Nicotine dependence, other tobacco product, uncomplicated
CPT/HCPCS: 36415; 74177; 80053; 81001; 83605; 85025; 87086; 96374; 96375; 96376; 99285; J0696; J1171; J2405

== ENCOUNTER 2024-08-06 09:05 | Oncology outpatient (recurring) (ONCR) | payer MEDICARE, SELFPAY | END 2024-08-15 23:59 | disposition home or self-care (01) | PROVIDERS: PCP Family Medicine; Visit Provider Internal Medicine | DX: C18.9 Malignant neoplasm of colon, unspecified (principal); C78.7 Secondary malignant neoplasm of liver and intrahepatic bile duct; Z72.0 Tobacco use; Z90.49 Acquired absence of other specified parts of digestive tract; K59.00 Constipation, unspecified; E11.9 Type 2 diabetes mellitus without complications; I10 Essential (primary) hypertension | CPT/HCPCS: 99205; 99214 ==